=== PATIENT | female | born 1940 | race Caucasian/White ===

== ENCOUNTER 2022-05-31 11:40 | Inpatient (IN) ==
[2022-05-31] MEDS ORDERED: hydrALAZINE 20 MG/1 ML VIAL IV STA (15:21)
[2022-05-31 15:35] LABS: Calcium 9.6 MG/DL (8.5-10.1); Osmolality,Calculated 278.5 MOS/KG (273-304); Potassium 3.9 MMOL/L (3.5-5.1)
[2022-05-31 16:08] LABS: Bilirubin,Urine Negative (Negative); Blood, Urine Negative (Negative); Glucose,Urine (UA) Negative (Negative); Ketones,Urine Negative (Negative); Nitrite,Urine Negative (Negative); Protein,Urine Negative (Negative); Urine Appearance Clear (Clear); Urine Color Yellow (Yellow); Urine Specific Gravity 1.015 (1.001-1.035); Urine Urobilinogen 0.2 eU/dL (<2.0); Urine pH 7.5 (4.5-8.0)
[2022-05-31 16:19] LABS: RBC,Urine <1 /HPF (0-4); Squamous Epithelial Cell,Urine Occasional /HPF (0-10)
[2022-05-31] MEDS ORDERED: LABETALOL 20 MG/4 ML SYRINGE IV STA (16:26)
[2022-05-31 17:04] LABS: Basophils % 0.5 % (0.0-0.8); Eosinophils # 0.1 10*3/uL (0.0-0.87); Eosinophils % 1.4 % (0.00-10.9); Hematocrit 37.9 VOL% (35.7-47.0); Hemoglobin 12.3 GM/DL (12.0-16.0); Immature Granulocytes % 0.2 %; Immature Granulocytes Absolute 0.01 #; Lymphocytes # 1.1 10*3/uL (1.4-4.0); Lymphocytes % 18.2 % (21.3-54.2); Mean Corpuscular HGB Conc 32.5 GM/DL (32-36); Mean Corpuscular Volume 92.7 FL (87-102); Monocytes # 0.4 10*3/uL (0.11-0.8); Monocytes % 6.7 % (1.7-12.7); Platelet Count 139 T/CUMM (130-400); Red Blood Count 4.09 MC/CUMM (3.8-5.5); Red Cell Distribution Width 12.9 % (9.3-17.3); White Blood Count 5.8 T/CUMM (4-12)
[2022-05-31] MEDS ORDERED: DEXTROSE 50% 25 GM/50 ML VIAL IV PRN (18:12)
[2022-05-31] MEDS ORDERED: hydrALAZINE 20 MG/1 ML VIAL IV PRN ×2 (18:12→18:20)
[2022-05-31] MEDS ORDERED: ACETAMINOPHEN 325 MG TABLET PO PRN (18:12)
[2022-05-31] MEDS ORDERED: GLUCAGON 1 MG VIAL IM PRN (18:12)
[2022-05-31] MEDS ORDERED: ONDANSETRON 4 MG/2 ML VIAL IV PRN (18:12)
[2022-05-31] MEDS ORDERED: SODIUM CHLORIDE 0.45% 1,000 ML IV SCH (18:30)
[2022-05-31] MEDS ORDERED: VALSARTAN 80 MG TABLET PO SCH (21:00)
[2022-05-31] MEDS ORDERED: ENOXAPARIN 40 MG/0.4 ML SYRINGE SUBCUT SCH (21:00)
[2022-05-31] MEDS: PRAZOSIN 1 MG CAPSULE PO SCH (21:14)
[2022-05-31 21:28] LABS: Thyroid Stimulating Hormone 5.73 uIU/ml (0.358-3.74)
[2022-05-31] MEDS ORDERED: MORPHINE 2 MG/1 ML SYRINGE IV STA (22:22)
[2022-05-31] MEDS ORDERED: ALUM/MAG/SIMETH/LIDO VISC 1:1 30 ML BOTTLE PO STA (22:33)
[2022-06-01 05:20] LABS: Basophils % 0.5 % (0.0-0.8); Eosinophils % 0.3 % (0.00-10.9); Hematocrit 36.2 VOL% (35.7-47.0); Hemoglobin 11.8 GM/DL (12.0-16.0); Immature Granulocytes % 0.2 %; Immature Granulocytes Absolute 0.01 #; Lymphocytes % 15.4 % (21.3-54.2); Mean Corpuscular HGB Conc 32.6 GM/DL (32-36); Mean Corpuscular Volume 91.4 FL (87-102); Mean Platelet Volume 9.6 FL (9.6-12.0); Monocytes # 0.4 10*3/uL (0.11-0.8); Monocytes % 5.9 % (1.7-12.7); Neutrophils % 77.7 % (38.7-73.9); Platelet Count 131 T/CUMM (130-400); Red Blood Count 3.96 MC/CUMM (3.8-5.5); Red Cell Distribution Width 13.2 % (9.3-17.3); White Blood Count 6.3 T/CUMM (4-12)
[2022-06-01 05:45] LABS: Albumin 3.4 G/DL (3.4-5.0); Bilirubin,Total 0.4 MG/DL (0.20-1.00); Calcium 9.5 MG/DL (8.5-10.1); Osmolality,Calculated 284.3 MOS/KG (273-304); Potassium 4.6 MMOL/L (3.5-5.1); Risk Ratio 2.61; Total Protein 6.3 G/DL (6.4-8.2); VLDL Cholesterol 16.6 MG/DL
[2022-06-01] MEDS ORDERED: ENOXAPARIN 80 MG/0.8 ML SYRINGE SUBCUT ONE (07:30)
[2022-06-01] MEDS ORDERED: MAGNESIUM SULF RIDER 2 GM/50 ML PREMIX IV PRN (07:54)
[2022-06-01] MEDS ORDERED: POTASSIUM CHLORIDE RIDER 10 MEQ/100 ML PREMIX IV PRN (07:54)
[2022-06-01] MEDS ORDERED: DIAZEPAM 5 MG TABLET PO ONE (08:30)
[2022-06-01] MEDS ORDERED: diphenhydrAMINE CAP 50 MG CAPSULE PO ONE (08:30)
[2022-06-01] MEDS ORDERED: METOPROLOL SUCCINATE XL 25 MG TABLET PO SCH (09:00)
[2022-06-01] MEDS: ASPIRIN EC 81 MG TABLET PO SCH (10:02)
[2022-06-01] MEDS: PANTOPRAZOLE 40 MG TABLET PO SCH (10:02)
[2022-06-01] MEDS: ROSUVASTATIN 20 MG TABLET PO SCH (10:02)
[2022-06-01] MEDS: PRAZOSIN 1 MG CAPSULE PO SCH ×2 (10:02→20:09)
[2022-06-01] MEDS: MULTIVITAMIN (CENTRUM) TABLET PO SCH (10:02)
[2022-06-01] MEDS: MELOXICAM 7.5 MG TABLET PO SCH (10:02)
[2022-06-01] MEDS ORDERED: fentaNYL 100 MCG/2 ML VIAL ONE (11:51)
[2022-06-01] MEDS ORDERED: MIDAZOLAM 2 MG/2 ML VIAL ONE (11:51)
[2022-06-01] MEDS ORDERED: SODIUM CHLORIDE 0.9% 1,000 ML IV SCH (13:00)
[2022-06-02 04:39] LABS: Basophils # 0.1 10*3/uL (0.0-0.2); Basophils % 0.9 % (0.0-0.8); Eosinophils # 0.3 10*3/uL (0.0-0.87); Eosinophils % 4.6 % (0.00-10.9); Hematocrit 35.3 VOL% (35.7-47.0); Hemoglobin 11.2 GM/DL (12.0-16.0); Immature Granulocytes % 0.4 %; Immature Granulocytes Absolute 0.02 #; Lymphocytes # 1.2 10*3/uL (1.4-4.0); Lymphocytes % 21.9 % (21.3-54.2); Mean Corpuscular HGB Conc 31.7 GM/DL (32-36); Mean Corpuscular Volume 93.4 FL (87-102); Monocytes # 0.5 10*3/uL (0.11-0.8); Monocytes % 8.8 % (1.7-12.7); Neutrophils % 63.4 % (38.7-73.9); Platelet Count 127 T/CUMM (130-400); Red Blood Count 3.78 MC/CUMM (3.8-5.5); Red Cell Distribution Width 13.4 % (9.3-17.3); White Blood Count 5.7 T/CUMM (4-12)
[2022-06-02] MEDS ORDERED: SODIUM CHLORIDE 0.9% 1,000 ML IV SCH (05:00)
[2022-06-02 05:01] LABS: Calcium 8.4 MG/DL (8.5-10.1); Osmolality,Calculated 285.1 MOS/KG (273-304); Potassium 4.3 MMOL/L (3.5-5.1)
[2022-06-02] MEDS ORDERED: LABETALOL 20 MG/4 ML SYRINGE IV ONE (07:37)
[2022-06-02] MEDS ORDERED: LIDOCAINE 2% 5 ML VIAL ONE (07:37)
[2022-06-02] MEDS ORDERED: propofoL 200 MG/20 ML VIAL IV ONE (07:38)
[2022-06-02] MEDS ORDERED: ETOMIDATE 40 MG/20 ML VIAL IV ONE (07:38)
[2022-06-02] MEDS ORDERED: METOPROLOL SUCCINATE XL 25 MG TABLET PO SCH (09:00)
[2022-06-02] MEDS ORDERED: LOSARTAN 50 MG TABLET PO SCH (09:00)
[2022-06-02] MEDS: ROSUVASTATIN 20 MG TABLET PO SCH (10:11)
[2022-06-02] MEDS: ASPIRIN EC 81 MG TABLET PO SCH (10:12)
[2022-06-02] MEDS: MELOXICAM 7.5 MG TABLET PO SCH (10:12)
[2022-06-02] MEDS: PANTOPRAZOLE 40 MG TABLET PO SCH (10:12)
[2022-06-02] MEDS: MULTIVITAMIN (CENTRUM) TABLET PO SCH (10:12)
[2022-06-02] MEDS: PRAZOSIN 1 MG CAPSULE PO SCH (10:12)
[2022-06-02 15:16] VITALS: BP 170/87
== END 2022-06-02 14:11 | disposition home or self-care (01) | DRG 287 ==
LOC: N.ED 11:40 → N.EDINP 18:11 → N.TELES 22:46
PROVIDERS: ADMIT Hospitalist; ATTEND Hospitalist